=== PATIENT | female | born 1980 | race Caucasian/White ===

== ENCOUNTER 2018-08-29 15:37 | Observation (INO) ==
[2018-08-29 17:41] LABS: Baso # (Auto) 0.1 th/mm3 (0.0-0.2); Baso % (Auto) 0.5 % (0.0-2.0); Eos # (Auto) 0.2 th/mm3 (0.0-0.4); Eos % (Auto) 2.3 % (0.0-4.0); Hemoglobin 15.8 gm/dL (11.6-15.3); Lymph # (Auto) 2.9 th/mm3 (1.0-4.8); Lymph % (Auto) 27.1 % (9.0-44.0); Mean Corpuscular HGB Conc 35.1 % (32.0-36.0); Mean Corpuscular Hemoglobin 31.1 pg (27.0-34.0); Mean Corpuscular Volume 88.7 fL (80.0-100.0); Mean Platelet Volume 8.5 fL (7.0-11.0); Mono # (Auto) 0.7 th/mm3 (0.0-0.9); Mono % (Auto) 6.9 % (0.0-8.0); Neut # (Auto) 6.8 th/mm3 (1.8-7.7); Neut % (Auto) 63.2 % (16.0-70.0); Platelet Count 409 th/mm3 (150-450); Red Blood Count 5.07 mil/mm3 (4.00-5.30); White Blood Count 10.7 th/mm3 (4.0-11.0)
--- NOTE | 2018-08-29 17:47 | ED ---
HPI General Chief Complaint: Anxiety Stated Complaint: all over numbness/breathing problem/feels fatigue Time Seen by Provider: 08/29/18 16:48 Source: patient Mode of arrival: ambulatory Limitations: no limitations History of Present Illness HPI narrative: 38-year-old female describes numbness and tingling about the arms and scalp. She describes extreme exhaustion. She reports a history of anxiety and has been compliant with Zoloft, Abilify and gabapentin. She takes gabapentin for chronic anxiety. She denies any change in her daily routine or added personal stress. She denies drug alcohol abuse. She reports smoking 1 pack of cigarettes a day. 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 No fever. No diarrhea. No vomiting. Patient describes generalized nonspecific chest pain and shortness of breath. There is no pleuritic chest pain. She denies excessive caffeine intake MD complaint: Reports anxiety and shortness of breath Onset (ago): day(s) Symptoms: Reports dyspnea and extremity numbness/tingling Severity: moderate Quality: Reports intermittent Place: home and work History of similar episodes: No Provoking factors: none known Relieving factors: nothing Exacerbating factors: nothing Associated symptoms: Reports chest pain, shortness of breath, confusion and headaches Related Data Home Medications Medication Instructions Recorded Confirmed aripiprazole [Abilify] 2 mg PO DAILY 08/29/18 08/29/18 bupropion HCl [Wellbutrin XL] 150 mg PO QAM 08/29/18 08/29/18 gabapentin 600 mg PO 08/29/18 Allergies Allergy/AdvReac Type Severity Reaction Status Date / Time methylprednisolone Allergy Severe Tachycardia Verified 08/29/18 16:03 Review of Systems ROS: all other systems reviewed are negative [facility] Medical History Medical History Anxiety (Acute) Bipolar disorder (Acute) Nerve damage (Acute) Surgical History Surgical History H/O adenoidectomy (Acute) Hx of tonsillectomy (Acute) Social History Social History Substance History: No History of Abuse Second Hand Smoke Exposure: No Smoking Status: Heavy tobacco smoker Tobacco Type: Cigarettes How Often Do You Have a Drink Containing Alcohol: Monthly or less Recent Travel in [facility] within the Last 8 Weeks: No Recent Out of Country Travel within the Last 8 Weeks: No Immunization History Tetanus Immunization: >5 Years Hx Influenza Vaccine This Season: No Exam Narrative Exam Narrative: GENERAL: 38-year-old female pleasant well-nourished well- developed mildly anxious reasonably cooperative SKIN: Focused skin assessment warm/dry. HEAD: Atraumatic. Normocephalic. EYES: Pupils equal and round. No scleral icterus. No injection or drainage. ENT: No nasal bleeding or discharge. Mucous membranes pink and moist. NECK: Trachea midline. No JVD. CARDIOVASCULAR: Regular rate and rhythm. No murmur appreciated. RESPIRATORY: No accessory muscle use. Clear to auscultation. Breath sounds equal bilaterally. GASTROINTESTINAL: Abdomen soft, non-tender, nondistended. Hepatic and splenic margins not palpable. MUSCULOSKELETAL: No obvious deformities. No clubbing. No cyanosis. No edema. NEUROLOGICAL: Awake and alert. No obvious cranial nerve deficits. Motor grossly within normal limits. Normal speech. PSYCHIATRIC: Anxious. No suicidal ideation. No homicidal ideation. Course Initial Documented Vital Signs Temperature 98.2 F 08/29/18 15:55 Pulse Rate 92 H 08/29/18 15:55 Respiratory Rate 16 08/29/18 15:55 Blood Pressure 98/64 L 08/29/18 15:55 Pulse Oximetry 100 08/29/18 15:55 Last Documented Vital Signs Temperature 98.5 F 08/30/18 08:00 Pulse Rate 55 L 08/30/18 08:00 Respiratory Rate 12 08/30/18 08:00 Blood Pressure 91/48 L 08/30/18 08:00 Pulse Oximetry 97 08/30/18 08:00 Sign Out Sign Out Data: Patient Sign Out occurred on 08/29/18 at 19:45. Patient's care was discussed, and care was transferred from Erickson Garcia MD to James Esteves. Sign Out Comment: Patient has a troponin of 0.13, unexpected for a 38-year-old female with no risk factors. Case was discussed with hospitalist to request CT pulmonary angiogram which was added on. Patient will require admission pending results of CT PA. Drug screen also added on. Patient somewhat hypotensive at 88/50 at the time of reassessment. She reports blood pressure typically runs low. She received Ativan shortly following arrival which may be contributing to need a lower than normal blood pressure. I do not BELIEVE she is currently suffering hemodynamic instability due to cardiopulmonary disease however pulmonary embolism is a reasonable consideration. Last updated by Erickson Garcia MD at 08/29/18 19:37 Medical Decision Making MDM Narrative Medical decision making narrative: Case discussed with Dr. Haskins who requested CT pulmonary angiogram which was added on. Case discussed with Dr. Esteves with the oncoming emergency physician. Plan will be to follow-up CT pulmonary angiogram and disposition appropriately. There is a troponin at 0.13 which is of course concerning in this 38-year-old female with no risk factors. Patient denied drug abuse at the time of reassessment. Patient denied chest pain at the time of reassessment, 7 PM. Aspirin given. Oxygen started. Will hold off metoprolol and nitro here in the ED because the blood pressure is 88/50. The patient reports a history of hypotension typically with a systolic in the 90s. This coupled with the administration of the milligram IV Ativan I think is a reasonable explanation for the relative hypotension in the ER. Drug screen added on as well. Medical Screen Exam Complete: Yes Emergency Medical Condition: Yes Differential Diagnosis Differential Diagnosis: Anxiety, anemia, arrhythmia, pneumonia, PE, coronary disease Medical Records Medical records reviewed: Yes I reviewed the patient's medical records. Lab Data Lab results reviewed: Yes I reviewed the patient's lab results. Lab results narrative: Troponin is 0.14 Result diagrams: 08/30/18 05:32 08/30/18 05:15 Lab Results 08/29/18 08/29/18 08/29/18 Range/Units 17:01 17:01 19:30 WBC 10.7 (4.0-11.0) th/mm3 RBC 5.07 (4.00-5.30) mil/mm3 Hgb 15.8 H (11.6-15.3) gm/dL Hct 45.0 (35.0-46.0) % MCV 88.7 (80.0-100.0) fL MCH 31.1 (27.0-34.0) pg MCHC 35.1 (32.0-36.0) % RDW 13.0 (11.6-17.2) % Plt Count 409 (150-450) th/mm3 MPV 8.5 (7.0-11.0) fL Neut % (Auto) 63.2 (16.0-70.0) % Lymph % (Auto) 27.1 (9.0-44.0) % Bureau % (Auto) 6.9 (0.0-8.0) % Eos % (Auto) 2.3 (0.0-4.0) % Baso % (Auto) 0.5 (0.0-2.0) % Neut # (Auto) 6.8 (1.8-7.7) th/mm3 Lymph # (Auto) 2.9 (1.0-4.8) th/mm3 Bureau # (Auto) 0.7 (0.0-0.9) th/mm3 Eos # (Auto) 0.2 (0.0-0.4) th/mm3 Baso # (Auto) 0.1 (0.0-0.2) th/mm3 WBC Differential . Differential Comment Auto diff final Sodium 135 L (136-145) meq/L Potassium 2.8 L* (3.5-5.1) meq/L Chloride 100 (98-107) meq/L Carbon Dioxide 23.9 (21.0-32.0) meq/L Anion Gap 11 (5-15) meq/L BUN 16 (7-18) mg/dL Creatinine 1.17 H (0.50-1.00) mg/dL Estimated GFR 52 L (>89) mL/min Random Glucose 101 (74-106) mg/dL Calcium 9.1 (8.5-10.1) mg/dL Prot Corrected Calcium (8.5-10.1) mg/dL Total Bilirubin 0.3 (0.2-1.0) mg/dL AST 19 (15-37) U/L ALT 22 (10-53) U/L Alkaline Phosphatase 89 (45-117) U/L Total Creatine Kinase (26-192) U/L Troponin I 0.13 H (0.02-0.05) ng/mL Total Protein 7.2 (6.4-8.2) g/dL Albumin 3.7 (3.4-5.0) g/dL TSH 1.570 (0.358-3.740) uIU/mL Urine Opiates Screen Neg (Neg) Ur Barbiturates Screen Neg (Neg) Ur Amphetamines Screen Pos H (Neg) U Benzodiazepines Scrn Neg (Neg) Urine Cocaine Screen Neg (Neg) U Cannabinoids Screen Neg (Neg) 08/29/18 08/29/18 08/30/18 Range/Units 21:30 21:30 05:15 WBC (4.0-11.0) th/mm3 RBC (4.00-5.30) mil/mm3 Hgb (11.6-15.3) gm/dL Hct (35.0-46.0) % MCV (80.0-100.0) fL MCH (27.0-34.0) pg MCHC (32.0-36.0) % RDW (11.6-17.2) % Plt Count (150-450) th/mm3 MPV (7.0-11.0) fL Neut % (Auto) (16.0-70.0) % Lymph % (Auto) (9.0-44.0) % Bureau % (Auto) (0.0-8.0) % Eos % (Auto) (0.0-4.0) % Baso % (Auto) (0.0-2.0) % Neut # (Auto) (1.8-7.7) th/mm3 Lymph # (Auto) (1.0-4.8) th/mm3 Bureau # (Auto) (0.0-0.9) th/mm3 Eos # (Auto) (0.0-0.4) th/mm3 Baso # (Auto) (0.0-0.2) th/mm3 WBC Differential Differential Comment Sodium 146 H D (136-145) meq/L Potassium 4.5 D (3.5-5.1) meq/L Chloride 120 H D (98-107) meq/L Carbon Dioxide 18.9 L (21.0-32.0) meq/L Anion Gap 7 (5-15) meq/L BUN 8 (7-18) mg/dL Creatinine 0.64 (0.50-1.00) mg/dL Estimated GFR Greater than 89 (>89) mL/min Random Glucose 80 (74-106) mg/dL Calcium 7.3 L* D (8.5-10.1) mg/dL Prot Corrected Calcium 8.2 L (8.5-10.1) mg/dL Total Bilirubin 0.3 (0.2-1.0) mg/dL AST 15 (15-37) U/L ALT 17 (10-53) U/L Alkaline Phosphatase 64 (45-117) U/L Total Creatine Kinase 59 Cancelled 51 (26-192) U/L Troponin I 0.14 H 0.09 H (0.02-0.05) ng/mL Total Protein 5.5 L D (6.4-8.2) g/dL Albumin 2.7 L D (3.4-5.0) g/dL TSH (0.358-3.740) uIU/mL Urine Opiates Screen (Neg) Ur Barbiturates Screen (Neg) Ur Amphetamines Screen (Neg) U Benzodiazepines Scrn (Neg) Urine Cocaine Screen (Neg) U Cannabinoids Screen (Neg) 08/30/18 Range/Units 05:32 WBC 7.1 (4.0-11.0) th/mm3 RBC 3.98 L (4.00-5.30) mil/mm3 Hgb 12.0 D (11.6-15.3) gm/dL Hct 37.1 (35.0-46.0) % MCV 93.0 D (80.0-100.0) fL MCH 30.2 (27.0-34.0) pg MCHC 32.4 (32.0-36.0) % RDW 12.9 (11.6-17.2) % Plt Count 263 D (150-450) th/mm3 MPV 8.6 (7.0-11.0) fL Neut % (Auto) 54.0 (16.0-70.0) % Lymph % (Auto) 34.0 (9.0-44.0) % Bureau % (Auto) 7.9 (0.0-8.0) % Eos % (Auto) 3.4 (0.0-4.0) % Baso % (Auto) 0.7 (0.0-2.0) % Neut # (Auto) 3.8 (1.8-7.7) th/mm3 Lymph # (Auto) 2.4 (1.0-4.8) th/mm3 Bureau # (Auto) 0.6 (0.0-0.9) th/mm3 Eos # (Auto) 0.2 (0.0-0.4) th/mm3 Baso # (Auto) 0.0 (0.0-0.2) th/mm3 WBC Differential . Differential Comment Auto diff final Sodium (136-145) meq/L Potassium (3.5-5.1) meq/L Chloride (98-107) meq/L Carbon Dioxide (21.0-32.0) meq/L Anion Gap (5-15) meq/L BUN (7-18) mg/dL Creatinine (0.50-1.00) mg/dL Estimated GFR (>89) mL/min Random Glucose (74-106) mg/dL Calcium (8.5-10.1) mg/dL Prot Corrected Calcium (8.5-10.1) mg/dL Total Bilirubin (0.2-1.0) mg/dL AST (15-37) U/L ALT (10-53) U/L Alkaline Phosphatase (45-117) U/L Total Creatine Kinase (26-192) U/L Troponin I (0.02-0.05) ng/mL Total Protein (6.4-8.2) g/dL Albumin (3.4-5.0) g/dL TSH (0.358-3.740) uIU/mL Urine Opiates Screen (Neg) Ur Barbiturates Screen (Neg) Ur Amphetamines Screen (Neg) U Benzodiazepines Scrn (Neg) Urine Cocaine Screen (Neg) U Cannabinoids Screen (Neg) Imaging Data Radiologist's impression: Chest CTA 08/29/18 19:09 CONCLUSION: 1. The study is negative for pulmonary embolism. ECG Data EKG Prior to Arrival: Yes Attestation: I personally reviewed and interpreted this ECG as follows: (EKG shows sinus rhythm, no ST elevation, depression or inversion of T waves present , normal rate, axis and intervals) Discharge Plan Discharge Disposition Patient Disposition: 30 Still Patient Physicians Team ED Provider: James Esteves Primary Care Provider: Yasemin Bradford Attending Provider: Sam Carmichael Discharge Interventions Interventions: ED Discharge Assessment Last Done: 08/29/18 23:26 Status ED Status: Left Department Discharge Information Discharge Date/Time: 08/29/18 23:28
[2018-08-29] MEDS ORDERED: Sod Chloride 0.9% Inj 1,000 ML IV.SIG SCH ×2 (18:00→19:15)
[2018-08-29 18:53] LABS: Alanine Aminotransferase 22 U/L (10-53); Albumin 3.7 g/dL (3.4-5.0); Alkaline Phosphatase 89 U/L (45-117); Anion Gap 11 meq/L (5-15); Aspartate Aminotransferase 19 U/L (15-37); Blood Urea Nitrogen 16 mg/dL (7-18); Calcium 9.1 mg/dL (8.5-10.1); Carbon Dioxide 23.9 meq/L (21.0-32.0); Chloride 100 meq/L (98-107); Glomerular Filtration Rate 52 mL/min (>89); Glucose,Random 101 mg/dL (74-106); Sodium 135 meq/L (136-145); Total Protein 7.2 g/dL (6.4-8.2); Troponin I 0.13 ng/mL (0.02-0.05)
[2018-08-29 18:55] LABS: Potassium 2.8 meq/L (3.5-5.1)
[2018-08-29 19:51] LABS: Amphetamine Screen,Urine Pos (Neg); Barbiturate Screen,Urine Neg (Neg); Cannabinoid Screen,Urine Neg (Neg); Cocaine Screen,Urine Neg (Neg)
--- NOTE | 2018-08-29 19:59 | CT ---
EXAM DATE: 08/29/2018 7:15 PM EDT AGE/SEX: 38 years / Female INDICATIONS: Chest pain; rule out pulmonary embolus. CLINICAL DATA: This is the patient's initial encounter. Patient reports that signs and symptoms have been present for 1 day and indicates a pain score of 5/10. MEDICAL/SURGICAL HISTORY: None. Appendectomy. RADIATION DOSE: 9.26 CTDI (mGy) COMPARISON: No prior exams available for comparison. TECHNIQUE: Volumetric scanning was performed using a multi-row detector CT scanner during bolus infu deysi of 75 ml Omnipaque 350 (iohexol) nonionic water-soluble contrast as a single exam dose. The yonathan a was post processed with a variety of visualization algorithms including full volume maximum intensi ty projection and sliding thin slab reformation. Using automated exposure control and adjustment of t he mA and/or kV according to patient size, radiation dose was kept as low as reasonably achievable to obtain optimal diagnostic quality images. DICOM format image data is available electronically for r eview and comparison. FINDINGS: Pulmonary Arteries: No filling defects are seen in the pulmonary arteries out to the subsegmental ve ssels. The left and right pulmonary arteries are normal in diameter. Lung: No infiltrates seen. Effusion: None. Mediastinum: No evidence of mediastinal or hilar adenopathy. Other: The axilla is unremarkable. CONCLUSION: 1. The study is negative for pulmonary embolism. Electronically signed by: Heber Corcoran MD 08/29/2018 7:58 PM EDT
[2018-08-29 20:08] LABS: Opiate Screen,Urine Neg (Neg)
[2018-08-29] MEDS ORDERED: Acetaminophen 325 MG Tablet PO PRN (21:30)
[2018-08-29] MEDS ORDERED: Bisacodyl 10 MG Supp RECTAL PRN (21:30)
[2018-08-29] MEDS ORDERED: Sod Chloride 0.9% Inj 1,000 ML IV.CONT SCH (21:30)
[2018-08-29] MEDS ORDERED: Morphine Inj 4 MG/ML Vial IV.PUSH PRN (21:32)
--- NOTE | 2018-08-29 21:32 | P.HPIM ---
History of Present Illness Primary Care Physician: SHIVA Rios History of Present Illness: This is a 38-year-old female with a PMH of Anxiety and Bipolar Disorder who presented to ER with multiple complaints including chest pain, bilateral upper extremity numbness/tingling and increased anxiety. Denies fever, chills, cough or sick contacts. Reports no recent caffeine or drug ingestion. On arrival, BP 98/64, HR 92, O2 sat 100% on RA, Afebrile. CBC unremarkable. K+ 2.8. Creatinine 1.17, no previous labs for comparison. Trop 0.13. UDS + Amphetamines. CTA Chest negative for PE. Currently chest pain-free, resting comfortably. - Diagnosis (1) Chest pain (2) Elevated troponin (3) Anxiety (4) Hypokalemia (5) RAINA (acute kidney injury) Review of Systems PAST FAMILY HISTORY: Reviewed. No h/o DM or CAD All other systems reviewed negative except as stated in HPI [facility] - History History Provided By: Patient - Medical History Medical History: Medical History (Last Updated 08/29/18 @ 16:54 by Valdez Osorio RN) Anxiety Bipolar disorder Nerve damage - Surgical History Surgical History: Surgical History (Last Updated 08/29/18 @ 16:54 by Valdez Osorio RN) H/O adenoidectomy Hx of tonsillectomy - Tobacco History Tobacco Use In Past 30 Days: Yes Smoking Status: Current every day smoker Tobacco Type: Cigarettes - Alcohol History How Often Do You Have a Drink Containing Alcohol: Monthly or less - Travel History Recent Travel in the [facility] Within the Last 8 Weeks: No Recent Travel Out of the Country Within the Last 8 Weeks: No - Immunization History Tetanus Immunization: >5 Years Hx Influenza Vaccine This Season: No Medications and Allergies Active Medications: Active Medications Sodium Chloride (Ns Inj) 1,000 mls @ 0 mls/hr IV.SIG BOLUS LUIZA Stop: 08/30/18 18:01 Last Infusion: 08/29/18 19:19 Dose: Infused Sodium Chloride (Ns Inj) 1,000 mls @ 0 mls/hr IV.SIG BOLUS LUIZA Last Infusion: 08/29/18 20:52 Dose: Infused Allergies Allergy/AdvReac Type Severity Reaction Status Date / Time methylprednisolone Allergy Severe Tachycardia Verified 08/29/18 16:03 Home Medications Medication Instructions Recorded Confirmed Type aripiprazole [Abilify] 2 mg PO DAILY 08/29/18 08/29/18 History bupropion HCl [Wellbutrin XL] 150 mg PO QAM 08/29/18 08/29/18 History gabapentin 600 mg PO 08/29/18 History Exam Vital signs: Vital Signs 08/29/18 15:55 08/29/18 16:57 08/29/18 19:20 Temperature 98.2 F Pulse Rate 92 H 79 76 Respiratory Rate 16 20 20 Blood Pressure 98/64 L 99/61 L 88/54 L Pulse Oximetry 100 100 100 Intake & Output 08/29/18 08/29/18 08/30/18 06:59 18:59 06:59 Intake Total 1999 Balance 1999 Weight 58.967 kg Intake: IV 1999 NS Inj 1,000 ML @ Wide Open IV. 1999 SIG BOLUS LUIZA Rx#:[id number] Narrative: PE: GENERAL: Young white in no acute distress, sleeping soundly after receiving Ativan in ER. SKIN: Focused skin assessment warm and dry. HEENT: PERRLA, EOMI. No scleral icterus or conjunctival pallor. No lid lag or facial droop. CARDIOVASCULAR: Regular rate and rhythm. No obvious murmurs to auscultation. No chest tenderness to palpation. RESPIRATORY: No obvious rhonchi or wheezing. Clear to auscultation. Breath sounds equal bilaterally. GASTROINTESTINAL: Abdomen soft, non-tender, nondistended. BS normal. MUSCULOSKELETAL: Extremities without clubbing, cyanosis, or edema. No obvious deformities. NEUROLOGICAL: Lethargic after Ativan. No focal neurologic deficits. Moving both upper and lower extremities spontaneously. PSYCHIATRIC: Appropriate mood and affect. Insight and judgment normal. Results - Labs CBC & Chem 7: 08/29/18 17:01 08/29/18 17:01 Labs: Short CBC 08/29/18 Range/Units 17:01 WBC 10.7 (4.0-11.0) th/mm3 Hgb 15.8 H (11.6-15.3) gm/dL Hct 45.0 (35.0-46.0) % Plt Count 409 (150-450) th/mm3 BMP 08/29/18 17:01 Sodium 135 L Potassium 2.8 L* Chloride 100 Carbon Dioxide 23.9 BUN 16 Creatinine 1.17 H Calcium 9.1 Cardiac Enzymes 08/29/18 Range/Units 17:01 Troponin I 0.13 H (0.02-0.05) ng/mL Liver Function 08/29/18 Range/Units 17:01 Total Bilirubin 0.3 (0.2-1.0) mg/dL AST 19 (15-37) U/L ALT 22 (10-53) U/L Alkaline Phosphatase 89 (45-117) U/L Albumin 3.7 (3.4-5.0) g/dL - Imaging Impressions Chest CTA 08/29/18 19:09 CONCLUSION: 1. The study is negative for pulmonary embolism. Caprini VTE Risk Assessment Caprini VTE Risk Assessment: No/Low Risk (score <= 1) Caprini Risk Assessment Model: Point Value = 1 Point Value = 2 Point Value = 3 Point Value = 5 Age 41-60 Minor surgery BMI > 25 kg/m2 Swollen legs Varicose veins or History of unexplained or recurrent spontaneous Oral contraceptives or hormone replacement Sepsis (< 1 month) Serious lung disease, including pneumonia (< 1 month) Abnormal pulmonary function Acute myocardial infarction Congestive heart failure (< 1 month) History of inflammatory bowel disease Medical patient at bed rest Age 61-74 Arthroscopic surgery Major open surgery (> 45 min) Laparoscopic surgery (> 45 min) Malignancy Confined to bed (> 72 hours) Immobilizing plaster cast Central venous access Age >= 75 History of VTE Family history of VTE Factor V Leiden Prothrombin [id number] Lupus anticoagulant Anticardiolipin antibodies Elevated serum homocysteine Heparin-induced thrombocytopenia Other congenital or acquired thrombophilia Stroke (< 1 month) Elective arthroplasty Hip, pelvis, or leg fracture Acute spinal cord injury (< 1 month) Prophylaxis Regimen: Total Risk Factor Score Risk Level Prophylaxis Regimen 0-1 Low Early ambulation 2 Moderate Order ONE of the following: *Sequential Compression Device (SCD) *Heparin 5000 units SQ BID 3-4 Higher Order ONE of the following medications: *Heparin 5000 units SQ TID *Enoxaparin/Lovenox 40 mg SQ daily (WT < 150 kg, CrCl > 30 mL/min) *Enoxaparin/Lovenox 30 mg SQ daily (WT < 150 kg, CrCl > 10-29 mL/min) *Enoxaparin/Lovenox 30 mg SQ BID (WT < 150 kg, CrCl > 30 mL/min) AND/OR *Sequential Compression Device (SCD) 5 or more Highest Order ONE of the following medications: *Heparin 5000 units SQ TID (Preferred with Epidurals) *Enoxaparin/Lovenox 40 mg SQ daily (WT < 150 kg, CrCl > 30 mL/min) *Enoxaparin/Lovenox 30 mg SQ daily (WT < 150 kg, CrCl > 10-29 mL/min) *Enoxaparin/Lovenox 30 mg SQ BID (WT < 150 kg, CrCl > 30 mL/min) AND *Sequential Compression Device (SCD) Assessment and Plan - Assessment (1) Chest pain Code(s): R07.9 - Chest pain, unspecified Status: Acute (2) Elevated troponin Code(s): R74.8 - Abnormal levels of other serum enzymes Status: Acute (3) Anxiety Code(s): F41.9 - Anxiety disorder, unspecified Status: Acute (4) Hypokalemia Code(s): E87.6 - Hypokalemia Status: Acute (5) RAINA (acute kidney injury) Code(s): N17.9 - Acute kidney failure, unspecified Status: Acute - Plan A/P: 1. Chest Pain: acute onset of chest pain, +anxiety, admit for Observation, telemetry, check serial cardiac enzymes. 2. Elevated Trop: Initial trop 0.13, currently chest pain free after Ativan, Check CPK, repeat cardiac enzymes for trend, UDS +amphetamines, possibly related to stimulants, Consult Cardiology for further evaluation. CTA Chest negative for PE, images reviewed. Check Echo to eval for valvular abnormality/ cardiomyopathy. 3. Anxiety: Ativan prn. 4. Hypokalemia: K+ 2.8, s/p replacement in ER, will recheck and replace as needed. 5. RAINA: Creatinine 1.17, no previous labs for comparison, presumably new, IVF for hydration, repeat labs in am, monitor I/O. 6. DVT Prophylaxis: SCD/Teds 7. Social work for d/c planning as needed. 8. Case discussed w/ ER physician at length, labs/records/imaging reviewed by me
--- NOTE | 2018-08-29 21:35 | ECG ---
Date Performed: 08/29/2018 Time Performed: 16:10:02 PTAGE: 38 years EKG: Sinus rhythm NORMAL ECG NO PREVIOUS TRACING DOCTOR: Leonel Soto Interpretating Date/Time 08/29/2018 21:33:25
[2018-08-29 22:03] LABS: Troponin I 0.14 ng/mL (0.02-0.05)
[2018-08-30 05:48] LABS: Baso % (Auto) 0.7 % (0.0-2.0); Eos # (Auto) 0.2 th/mm3 (0.0-0.4); Eos % (Auto) 3.4 % (0.0-4.0); Hematocrit 37.1 % (35.0-46.0); Lymph # (Auto) 2.4 th/mm3 (1.0-4.8); Mean Corpuscular HGB Conc 32.4 % (32.0-36.0); Mean Corpuscular Hemoglobin 30.2 pg (27.0-34.0); Mean Platelet Volume 8.6 fL (7.0-11.0); Mono # (Auto) 0.6 th/mm3 (0.0-0.9); Mono % (Auto) 7.9 % (0.0-8.0); Neut # (Auto) 3.8 th/mm3 (1.8-7.7); Platelet Count 263 th/mm3 (150-450); Red Blood Count 3.98 mil/mm3 (4.00-5.30); Red Cell Distribution Width 12.9 % (11.6-17.2); White Blood Count 7.1 th/mm3 (4.0-11.0)
[2018-08-30 06:10] LABS: Alanine Aminotransferase 17 U/L (10-53); Albumin 2.7 g/dL (3.4-5.0); Alkaline Phosphatase 64 U/L (45-117); Anion Gap 7 meq/L (5-15); Aspartate Aminotransferase 15 U/L (15-37); Blood Urea Nitrogen 8 mg/dL (7-18); Calcium 7.3 mg/dL (8.5-10.1); Carbon Dioxide 18.9 meq/L (21.0-32.0); Chloride 120 meq/L (98-107); Glomerular Filtration Rate Greater Than 89 mL/min (>89); Glucose,Random 80 mg/dL (74-106); Potassium 4.5 meq/L (3.5-5.1); Sodium 146 meq/L (136-145); Total Protein 5.5 g/dL (6.4-8.2); Troponin I 0.09 ng/mL (0.02-0.05)
[2018-08-30 06:11] LABS: Creatine Kinase 51 U/L (26-192)
[2018-08-30 08:13] VITALS: BP 91/48; PULSE 55; RESP 12; TEMP 98.5; O2SAT 97
[2018-08-30] MEDS ORDERED: Senna/Docusate Sodium 8.6/50 MG Tablet PO SCH (09:00)
--- NOTE | 2018-08-30 09:14 | P.PN ---
Subjective Interval history: Follow-up on patient with chest pain. Patient seen and examined. Patient has no complaints of chest pain. She denies any nausea, vomiting abdominal pain or shortness of breath. She denies any fever or chills. She denies any dizziness , headache, lightheadedness, numbness/tingling or weakness. She denies taking any amphetamines. Physical Exam Vital signs: Vital Signs 08/29/18 15:55 08/29/18 16:57 08/29/18 19:20 Temperature 98.2 F Pulse Rate 92 H 79 76 Respiratory Rate 16 20 20 Blood Pressure 98/64 L 99/61 L 88/54 L Pulse Oximetry 100 100 100 08/29/18 22:00 08/29/18 23:51 08/30/18 00:45 Temperature 97.8 F Pulse Rate 72 57 L 56 L Respiratory Rate 16 16 Blood Pressure 102/61 Pulse Oximetry 98 98 08/30/18 03:55 08/30/18 08:00 Temperature 98.0 F 98.5 F Pulse Rate 54 L 55 L Respiratory Rate 16 12 Blood Pressure 86/48 L 91/48 L Pulse Oximetry 98 97 Intake & Output 08/29/18 08/30/18 08/30/18 18:59 06:59 18:59 Intake Total 1999 Balance 1999 Weight 58.967 kg Intake: IV 1999 NS Inj 1,000 ML @ Wide Open IV. 1999 SIG BOLUS LUIZA Rx#:[id number] Narrative: GENERAL: WDWN young white female patient, in no acute distress. Awake and alert. Appears comfortable. SKIN: Focused skin assessment warm and dry. HEENT: NC/AT. PERRLA, EOMI. No scleral icterus or conjunctival pallor. No lid lag or facial droop. CARDIOVASCULAR: Regular rate and rhythm. No obvious murmurs to auscultation. No chest tenderness to palpation. RESPIRATORY: No obvious rhonchi or wheezing. Clear to auscultation. Breath sounds equal bilaterally. GASTROINTESTINAL: Abdomen soft, non-tender, nondistended. BS normal. MUSCULOSKELETAL: Extremities without clubbing, cyanosis, or edema. No obvious deformities. NEUROLOGICAL: Awake and alert. Cranial nerves grossly intact. Moving both upper and lower extremities spontaneously. No focal neurologic findings appreciated. Normal speech. PSYCHIATRIC: Appropriate mood and affect. Calm and cooperative. Results - Labs CBC & Chem 7: 08/30/18 05:32 08/30/18 05:15 Laboratory Results - last 24 hr 08/29/18 08/29/18 08/29/18 17:01 17:01 19:30 WBC 10.7 RBC 5.07 Hgb 15.8 H Hct 45.0 MCV 88.7 MCH 31.1 MCHC 35.1 RDW 13.0 Plt Count 409 MPV 8.5 Neut % (Auto) 63.2 Lymph % (Auto) 27.1 Mclean % (Auto) 6.9 Eos % (Auto) 2.3 Baso % (Auto) 0.5 Neut # (Auto) 6.8 Lymph # (Auto) 2.9 Mclean # (Auto) 0.7 Eos # (Auto) 0.2 Baso # (Auto) 0.1 WBC Differential . Differential Comment Auto diff final Sodium 135 L Potassium 2.8 L* Chloride 100 Carbon Dioxide 23.9 Anion Gap 11 BUN 16 Creatinine 1.17 H Estimated GFR 52 L Random Glucose 101 Calcium 9.1 Prot Corrected Calcium Total Bilirubin 0.3 AST 19 ALT 22 Alkaline Phosphatase 89 Total Creatine Kinase Troponin I 0.13 H Total Protein 7.2 Albumin 3.7 TSH 1.570 Urine Opiates Screen Neg Ur Barbiturates Screen Neg Ur Amphetamines Screen Pos H U Benzodiazepines Scrn Neg Urine Cocaine Screen Neg U Cannabinoids Screen Neg 08/29/18 08/29/18 08/30/18 21:30 21:30 05:15 WBC RBC Hgb Hct MCV MCH MCHC RDW Plt Count MPV Neut % (Auto) Lymph % (Auto) Mclean % (Auto) Eos % (Auto) Baso % (Auto) Neut # (Auto) Lymph # (Auto) Mclean # (Auto) Eos # (Auto) Baso # (Auto) WBC Differential Differential Comment Sodium 146 H D Potassium 4.5 D Chloride 120 H D Carbon Dioxide 18.9 L Anion Gap 7 BUN 8 Creatinine 0.64 Estimated GFR Greater than 89 Random Glucose 80 Calcium 7.3 L* D Prot Corrected Calcium 8.2 L Total Bilirubin 0.3 AST 15 ALT 17 Alkaline Phosphatase 64 Total Creatine Kinase 59 Cancelled 51 Troponin I 0.14 H 0.09 H Total Protein 5.5 L D Albumin 2.7 L D TSH Urine Opiates Screen Ur Barbiturates Screen Ur Amphetamines Screen U Benzodiazepines Scrn Urine Cocaine Screen U Cannabinoids Screen 09/30/18 05:32 WBC 7.1 RBC 3.98 L Hgb 12.0 D Hct 37.1 MCV 93.0 D MCH 30.2 MCHC 32.4 RDW 12.9 Plt Count 263 D MPV 8.6 Neut % (Auto) 54.0 Lymph % (Auto) 34.0 Mclean % (Auto) 7.9 Eos % (Auto) 3.4 Baso % (Auto) 0.7 Neut # (Auto) 3.8 Lymph # (Auto) 2.4 Mclean # (Auto) 0.6 Eos # (Auto) 0.2 Baso # (Auto) 0.0 WBC Differential . Differential Comment Auto diff final Sodium Potassium Chloride Carbon Dioxide Anion Gap BUN Creatinine Estimated GFR Random Glucose Calcium Prot Corrected Calcium Total Bilirubin AST ALT Alkaline Phosphatase Total Creatine Kinase Troponin I Total Protein Albumin TSH Urine Opiates Screen Ur Barbiturates Screen Ur Amphetamines Screen U Benzodiazepines Scrn Urine Cocaine Screen U Cannabinoids Screen - Imaging Impressions Chest CTA 08/29/18 19:09 CONCLUSION: 1. The study is negative for pulmonary embolism. Assessment and Plan - Assessment (1) Chest pain Code(s): R07.9 - Chest pain, unspecified Status: Acute (2) Elevated troponin Code(s): R74.8 - Abnormal levels of other serum enzymes Status: Acute (3) Anxiety Code(s): F41.9 - Anxiety disorder, unspecified Status: Acute (4) Hypokalemia Code(s): E87.6 - Hypokalemia Status: Acute (5) RIANA (acute kidney injury) Code(s): N17.9 - Acute kidney failure, unspecified Status: Acute - Plan 38-year-old female with a PMH of Anxiety and Bipolar Disorder who presented to ER with multiple complaints including chest pain, bilateral upper extremity numbness/tingling and increased anxiety. Chest Pain: acute onset of chest pain, +anxiety resolved, patient is chest pain free -telemetry Elevated Trop: UDS +amphetamines, patient denies amphetamine use CTA Chest negative for PE. -trops 0.13, 0.14, 0.09. Suspect elevated troponin secondary to catecholamine surge secondary to amphetamine use -Discussed with Dr. Carmichael, no further workup needed. Will cancel echocardiogram Hypokalemia: K+ 2.8, s/p replacement in ER -resolved s/p repletion RAINA: Creatinine 1.17, no previous labs for comparison, presumably new -resolved s/p IVF for hydration -repeat Cr 0.64 -encourage fluid intake -Monitor kidney function as indicated DVT Prophylaxis: SCD/Teds Discharge patient to home Condition on discharge: Stable Regular Diet as tolerated Ad Kiara activity Rx written: Follow-up with primary care physician Code Status: FULL Discussed Condition With: patient, nursing staff, Dr. Carmichael
--- NOTE | 2018-08-30 09:47 | ECG ---
Date Performed: 08/30/2018 Time Performed: 03:48:58 PTAGE: 38 years EKG: SINUS BRADYCARDIA PROLONGED QT INTERVAL ABNORMAL ECG No significant change from prior elect rocardiogram. PREVIOUS TRACING : 08/29/2018 22.51 DOCTOR: Leonel Soto Interpretating Date/Time 08/30/2018 09:45:09
--- NOTE | 2018-08-30 09:50 | ECG ---
Date Performed: 08/29/2018 Time Performed: 22:51:23 PTAGE: 38 years EKG: SINUS BRADYCARDIA PROLONGED QT INTERVAL ABNORMAL ECG Compared to prior electrocardiogram, r ate has decreased . PREVIOUS TRACING : 08/29/2018 16.10 DOCTOR: Leonel Soto Interpretating Date/Time 08/30/2018 09:50:25
== END 2018-08-30 10:40 | disposition home or self-care (01) ==
LOC: NEPE 15:37 → NEDA 15:37 → NEPHCDU 23:23
PROVIDERS: ADMIT Hospitalist; ATTEND Hospitalist